=== PATIENT | male | born 1940 | race Caucasian/White ===

== ENCOUNTER → 2019-01-13 | Outpatient (CLI) | payer OTHER ==
[~2019-01-13] MED LIST: AMLO5 PO; ASPI325 PO; ATEN25 PO; ATEN50 PO; HYDCHL25 PO; LOSA50 PO; [UNRECOGNIZED DRUG - OTHER] PO
[2019-01-13 18:26] LABS: BASOPHILS ABSOLUTE AUTO 0.01 K/mm3 (0.00-0.23); BASOPHILS PERCENT AUTO 0 % (0-2); EOSINOPHILS ABSOLUTE AUTO 0.04 K/mm3 (0.00-0.68); EOSINOPHILS PERCENT AUTO 1 % (0-6); Hematocrit 42.9 % (37.0-53.0); Hemoglobin 14.5 g/dL (13.5-17.5); IMMATURE GRAN ABSOLUTE AUTO 0.02 K/mm3 (0.00-0.10); IMMATURE GRAN PERCENT AUTO 0 % (0-1); LYMPHOCYTES ABSOLUTE AUTO 0.86 K/mm3 (0.84-5.20); LYMPHOCYTES PERCENT AUTO 13 % (21-46); MONOCYTES ABSOLUTE AUTO 0.41 K/mm3 (0.16-1.47); MONOCYTES PERCENT AUTO 6 % (4-13); Mean Corpuscular HGB 32.4 pg (26.0-34.0); Mean Corpuscular HGB Conc 33.8 g/dL (31.5-36.5); Mean Corpuscular Volume 96 fL (80-100); Mean Platelet Volume 12.9 fL (9.1-12.4); NEUTROPHILS PERCENT AUTO 80 % (41-73); Platelet Count 155 K/mm3 (150-400); RDW Coefficient Variation 14.6 % (11.7-14.2); RDW Standard Deviation 51.4 fL (35.1-46.3); Red Blood Cell Count 4.48 M/mm3 (4.30-5.90); White Blood Cell Count 6.64 K/mm3 (4.00-11.30)
[2019-01-13 18:34] LABS: Bun/Creatinine Ratio 11.8 (12.0-20.0); Calcium, Blood 9.1 mg/dL (8.5-10.1); Creatinine, Blood 1.86 mg/dL (0.60-1.20); Potassium, Blood 4.1 mmol/L (3.5-5.5)
== END | disposition home or self-care (01) ==
LOC: LAB SHORT 18:19 → LAB EV 18:19
PROVIDERS: Physician Assistant Surgical
DX: R42 Dizziness and giddiness (principal)
CPT/HCPCS: 80048; 85025

== ENCOUNTER 2021-08-27 21:06 | Emergency (ER) | payer OTHER ==
[~2021-08-27] VITALS: Ht 170.2 cm; Wt 79.4 kg
[2021-08-27 22:03] LABS: BASOPHILS ABSOLUTE AUTO 0.01 K/mm3 (0.00-0.23); BASOPHILS PERCENT AUTO 0 % (0-2); EOSINOPHILS ABSOLUTE AUTO 0.11 K/mm3 (0.00-0.68); EOSINOPHILS PERCENT AUTO 3 % (0-6); Hematocrit 45.4 % (37.0-53.0); Hemoglobin 15.2 g/dL (13.5-17.5); IMMATURE GRAN ABSOLUTE AUTO 0.01 K/mm3 (0.00-0.10); IMMATURE GRAN PERCENT AUTO 0 % (0-1); LYMPHOCYTES ABSOLUTE AUTO 1.82 K/mm3 (0.84-5.20); LYMPHOCYTES PERCENT AUTO 41 % (21-46); MONOCYTES PERCENT AUTO 11 % (4-13); Mean Corpuscular HGB 32.1 pg (26.0-34.0); Mean Corpuscular HGB Conc 33.5 g/dL (31.5-36.5); Mean Corpuscular Volume 96 fL (80-100); Mean Platelet Volume 12.8 fL (9.1-12.4); NEUTROPHILS ABSOLUTE AUTO 2.03 K/mm3 (1.96-9.15); NEUTROPHILS PERCENT AUTO 45 % (41-73); Platelet Count 123 K/mm3 (150-400); RDW Coefficient Variation 13.4 % (11.7-14.2); RDW Standard Deviation 47.9 fL (35.1-46.3); Red Blood Cell Count 4.73 M/mm3 (4.30-5.90); White Blood Cell Count 4.48 K/mm3 (4.00-11.30)
[2021-08-27 22:19] LABS: Alanine Aminotransfer (ALT/SGP 30 U/L (12-78); Albumin, Blood 3.5 g/dL (3.4-5.0); Albumin/Globulin Ratio 0.9 (0.8-1.8); Alk Phos 65 U/L (50-136); Anion Gap 3 mmol/L (6-16); Aspartate Aminotrans (AST/SGOT 20 U/L (12-37); Bilirubin, Total 0.5 mg/dL (0.1-1.0); Blood Urea Nitrogen 18 mg/dL (8-24); Bun/Creatinine Ratio 17.1 (12.0-20.0); CO2, Blood 30 mmol/L (21-32); Calcium, Blood 8.8 mg/dL (8.5-10.1); Chloride, Blood 106 mmol/L (98-108); Creatinine, Blood 1.05 mg/dL (0.60-1.20); Globulin, Blood 3.8 g/dL (2.2-4.0); Glomerular Filtration Rate >60 (60-); Glucose, Blood 95 mg/dL (70-99); Potassium, Blood 4.5 mmol/L (3.5-5.5); Sodium, Blood 139 mmol/L (136-145); Total Protein, Blood 7.3 g/dL (6.4-8.2); Troponin I <0.015 ng/mL (0.000-0.040)
[2021-08-27] MEDS ORDERED: Pepcid40 MG PO (23:40)
== END 2021-08-28 00:16 | disposition home or self-care (01) ==
LOC: ER 21:06
PROVIDERS: Physician Assistant
DX: R07.89 Other chest pain (principal); I10 Essential (primary) hypertension; E78.00 Pure hypercholesterolemia, unspecified; Z88.8 Allergy status to other drugs, medicaments and biological substances; Z79.899 Other long term (current) drug therapy; Z86.73 Personal history of transient ischemic attack (TIA), and cerebral infarction without residual deficits
CPT/HCPCS: 36415; 71046; 80053; 83690; 83880; 84484; 85025; 93005; 93010; 96374; 99285-25; A9270

== ENCOUNTER 2021-08-30 15:55 | Inpatient (IN) | payer OTHER ==
[~2021-08-30] VITALS: Ht 170.2 cm; Wt 81.4 kg
[~2021-08-30 15:55] MED LIST changes: +Pepcid40 MG PO
[2021-08-30 16:32] LABS: BASOPHILS ABSOLUTE AUTO 0.01 K/mm3 (0.00-0.23); BASOPHILS PERCENT AUTO 0 % (0-2); EOSINOPHILS ABSOLUTE AUTO 0.07 K/mm3 (0.00-0.68); EOSINOPHILS PERCENT AUTO 1 % (0-6); Hematocrit 47.1 % (37.0-53.0); Hemoglobin 15.8 g/dL (13.5-17.5); IMMATURE GRAN ABSOLUTE AUTO 0.01 K/mm3 (0.00-0.10); IMMATURE GRAN PERCENT AUTO 0 % (0-1); LYMPHOCYTES ABSOLUTE AUTO 1.12 K/mm3 (0.84-5.20); LYMPHOCYTES PERCENT AUTO 20 % (21-46); MONOCYTES ABSOLUTE AUTO 0.28 K/mm3 (0.16-1.47); MONOCYTES PERCENT AUTO 5 % (4-13); Mean Corpuscular HGB Conc 33.5 g/dL (31.5-36.5); Mean Corpuscular Volume 95 fL (80-100); Mean Platelet Volume 12.5 fL (9.1-12.4); NEUTROPHILS ABSOLUTE AUTO 4.07 K/mm3 (1.96-9.15); NEUTROPHILS PERCENT AUTO 73 % (41-73); Platelet Count 122 K/mm3 (150-400); RDW Coefficient Variation 13.3 % (11.7-14.2); RDW Standard Deviation 46.7 fL (35.1-46.3); Red Blood Cell Count 4.94 M/mm3 (4.30-5.90); White Blood Cell Count 5.56 K/mm3 (4.00-11.30)
[2021-08-30 16:53] LABS: Albumin, Blood 3.8 g/dL (3.4-5.0); Bilirubin, Total 0.5 mg/dL (0.1-1.0); Bun/Creatinine Ratio 14.8 (12.0-20.0); Calcium, Blood 8.8 mg/dL (8.5-10.1); Creatinine, Blood 1.22 mg/dL (0.60-1.20); Globulin, Blood 3.7 g/dL (2.2-4.0); Potassium, Blood 3.7 mmol/L (3.5-5.5); Total Protein, Blood 7.5 g/dL (6.4-8.2); Troponin I 0.091 ng/mL (0.000-0.040)
[2021-08-30] MEDS ORDERED: TAMSULOSIN HCL0.4 M1 PO (18:47)
--- NOTE | 2021-08-30 23:59 | NUR ---
ERROR ON CHART REGARDING ALCOHOL WITHDRAWELS. THIS WAS WRITTEN IN THE WRONG CHART MISTAKENLY BY THIS RN. PATIENT HAS NO ALCOHOL SYMPTOMS NOR HAS HE AN ALCOHOL HISTORY. Suzanna JOHN RN.
--- NOTE | 2021-08-31 07:48 | NUR ---
PATIENT IS ALERT AND ORIENTED X4. HE IS COOPERATIVE WITH CARE, HOWEVER, HE IS VERY ANXIOUS ABOUT WHEN HE CAN GO HOME. EXPLAINED CT ANGIO AND POSSIBILITY OF REFRIGERATOR CAR ICER INTERVENTION IF NEEDED. MEDICATED ONCE WITH TYLENOL FOR FRONTAL HEADACHE WITH GOOD RESULT MEDICATED TWICE FOR SBP > 170
--- NOTE | 2021-08-31 13:02 | NUR ---
Echocardiogram completed.
--- NOTE | 2021-08-31 18:00 | NUR ---
SHIFT SUMMARY; PATIENT HAD FIRST PART OF NADINE SCAN TODAY. SECOND PART IN AM ON WEDNESDAY. PATIENT IS INDEPENDANT IN ROOM. DENIES ANY CHEST PAIN OR DISCOMFORT. WILL REMAIN AVAILABLE FOR THIS PATIENT UNTIL SHIFT CHANGE AND HAND OFF TO ONCOMING RN. STACIE NAGEL RN
[2021-09-01 04:53] LABS: BASOPHILS ABSOLUTE AUTO 0.01 K/mm3 (0.00-0.23); BASOPHILS PERCENT AUTO 0 % (0-2); EOSINOPHILS ABSOLUTE AUTO 0.16 K/mm3 (0.00-0.68); EOSINOPHILS PERCENT AUTO 3 % (0-6); Hematocrit 41.3 % (37.0-53.0); IMMATURE GRAN ABSOLUTE AUTO 0.02 K/mm3 (0.00-0.10); IMMATURE GRAN PERCENT AUTO 0 % (0-1); LYMPHOCYTES ABSOLUTE AUTO 1.49 K/mm3 (0.84-5.20); LYMPHOCYTES PERCENT AUTO 29 % (21-46); MONOCYTES ABSOLUTE AUTO 0.37 K/mm3 (0.16-1.47); MONOCYTES PERCENT AUTO 7 % (4-13); Mean Corpuscular HGB 32.2 pg (26.0-34.0); Mean Corpuscular HGB Conc 33.9 g/dL (31.5-36.5); Mean Corpuscular Volume 95 fL (80-100); Mean Platelet Volume 12.5 fL (9.1-12.4); NEUTROPHILS ABSOLUTE AUTO 3.04 K/mm3 (1.96-9.15); NEUTROPHILS PERCENT AUTO 60 % (41-73); Platelet Count 112 K/mm3 (150-400); RDW Coefficient Variation 13.5 % (11.7-14.2); RDW Standard Deviation 47.4 fL (35.1-46.3); Red Blood Cell Count 4.35 M/mm3 (4.30-5.90); White Blood Cell Count 5.09 K/mm3 (4.00-11.30)
--- NOTE | 2021-09-01 05:18 | NUR ---
SHIFT SUMMARY A/OX4, PLEASANT AND COOPERATIVE WITH CARE. DENIES CP AND SOB AT THIS TIME. TELE SB IN THE 50S. NPO SINCE MIDNIGHT FOR 2ND STRESS TEST TODAY. VSS, NO ACUTE CHANGES AT THIS TIME. BED IN LOWEST POSITION WITH CALL LIGHT IN REACH. WILL CONTINUE TO MONITOR AND REPORT TO ONCOMING RN.
[2021-09-01 05:37] LABS: Alanine Aminotransfer (ALT/SGP 26 U/L (12-78); Alk Phos 51 U/L (50-136); Anion Gap 8 mmol/L (6-16); Aspartate Aminotrans (AST/SGOT 13 U/L (12-37); Bilirubin, Total 0.6 mg/dL (0.1-1.0); Blood Urea Nitrogen 20 mg/dL (8-24); Bun/Creatinine Ratio 20.4 (12.0-20.0); CO2, Blood 25 mmol/L (21-32); Calcium, Blood 8.9 mg/dL (8.5-10.1); Chloride, Blood 106 mmol/L (98-108); Creatinine, Blood 0.98 mg/dL (0.60-1.20); Globulin, Blood 2.9 g/dL (2.2-4.0); Glomerular Filtration Rate >60 (60-); Glucose, Blood 101 mg/dL (70-99); Magnesium, Blood 1.9 mg/dL (1.6-2.4); Sodium, Blood 139 mmol/L (136-145); Total Protein, Blood 5.9 g/dL (6.4-8.2)
--- NOTE | 2021-09-01 18:15 | NUR ---
PT A/O X4, INDEPENDENT IN ROOM, NO C/O OF CHEST PAIN THIS SHIFT, PART 2 OF STRESS CONCLUDED THIS AFTERNOON. WAITING FOR IT TO BE READ. PT WOULD LIKE TO BE DISCHARGED HOME IF POSSIBLE. NO ACUTE CHANGES NOTED THIS SHIFT, WILL CONTINUE TO MONITOR AND REPORT TO ONCOMING RN.
--- NOTE | 2021-09-01 23:44 | NUR ---
Pt is independant and showered and dressed w/ no assistance. He is pleasant and friendly. Pt expressed that he did not want to take his 2100 Lozartan as he didnt think it was the same dosage as the one he takes at home. Pt then changed his mind and asked to take the med. Pt denies any chest pain or sob and states that he is comfortable.
--- NOTE | 2021-09-02 06:11 | NUR ---
Pt care was uneventful and unremarkable. Pt is kind and friendly and is independant and pro active in his own care. Pt had cardiac stress test yesterday and is waiting for a cardiac consult. He is hoping to go home today. He slept most of the night but stated he was woke up at 0430 to have his vital signs taken. Pt denies chest pain or sob and states that he is not in pain anywhere else. Vitals are wnl.
[2021-09-02 15:51] LABS: Anti-Xa UFH, PHA Monitoring <0.10 IU/mL; International Normalized Ratio 1.01; Prothrombin Time Results 10.6 Sec (9.7-11.5)
--- NOTE | 2021-09-03 01:20 | NUR ---
HEPARIN: Heparin Anti Xa @ 2318 was 0.74. Per pharmacy heparin gtt is decreased to 14 u/kg/hr. Next lab draw is at 0600.
--- NOTE | 2021-09-03 06:10 | NUR ---
SHIFT SUMMARY: VSS, NO REPORTS OF PAIN OR DISCOMFORT. HEPARIN GTT IS INFUSING AT 14 U/KG/HR. AWAITING RESULTS OF THE 0600 HEPARIN Aniti-Xa DRAW. PATIENT HAS BEEN NPO SINCE [place]. IFV ARE INFUSING PER MD ORDER.
[2021-09-03 07:05] LABS: Anion Gap 8 mmol/L (6-16); Blood Urea Nitrogen 21 mg/dL (8-24); Bun/Creatinine Ratio 23.1 (12.0-20.0); CO2, Blood 25 mmol/L (21-32); Calcium, Blood 8.6 mg/dL (8.5-10.1); Chloride, Blood 108 mmol/L (98-108); Creatinine, Blood 0.91 mg/dL (0.60-1.20); Glomerular Filtration Rate >60 (60-); Glucose, Blood 99 mg/dL (70-99); Potassium, Blood 4.1 mmol/L (3.5-5.5); Sodium, Blood 141 mmol/L (136-145); Troponin I 0.238 ng/mL (0.000-0.040)
[2021-09-03 09:22] LABS: Influenza A, PCR NEGATIVE (NEGATIVE); Influenza B, PCR NEGATIVE (NEGATIVE); Resp Syncytial Virus, PCR NEGATIVE (NEGATIVE); SARS-Cov-2 (COVID-19) PCR, MMC NEGATIVE (NEGATIVE)
--- NOTE | 2021-09-03 09:28 | NUR ---
PT TAKEN FOR PROCEDURE, BELONGINGS BROUGHT TO ICU 5
--- NOTE | 2021-09-03 10:30 | NUR ---
REPORT GIVEN TO AUGUSTINE ANGUIANO
--- NOTE | 2021-09-03 11:23 | NUR ---
PT TO ICU 5 FROM THERAPIST PHYS AT 1055. PT IS A/O X4. DENIES PAIN OR SOB. ON RA. PT HAS R RADIAL TR BAND IN PLACE WITH ARM BOARD. NO SIGNS OF BLEEDING FROM THIS SITE. ALSO HAS FEMSTOP TO R GROIN. DR. BROWN WANTS FEMSTOP DECREASED BY 20 EVERY HOURS. R GROIN DRESSING HAS A SM AMT OF BLOOD THE SIZE OF A QUARTER ON DRESSING THAT IS NOT GROWING IN SIZE UNDER THE FEMSTOP. PT IS ABLE TO USE CALL LIGHT. NO SIGN OF DISTRESS. DR. BROWN IS CONTACTING [facility] TO SEE IF HE CAN BE TRANSFERED FOR CABG.
[2021-09-03 15:03] LABS: Hematocrit 40.7 % (37.0-53.0); Mean Platelet Volume 12.3 fL (9.1-12.4); Platelet Count 110 K/mm3 (150-400)
--- NOTE | 2021-09-03 15:44 | NUR ---
PT IS RESTING IN BED. R RADIAL TR BAND HAS BEEN DEFLATED WITHOUT ISSUE. R FEMORAL ACCESS SITE IS STABLE, CLEAR OCCLUSIVE DRESSING PLACED. STARTING TO SLOWLY RAISE HOB. NO SIGN OF DISTRESS.
--- NOTE | 2021-09-03 19:45 | NUR ---
patient ambulated around ICU/guerra with RN HR highest at 82 No desaturations with pulse ox, patient on RA
--- NOTE | 2021-09-03 21:33 | NUR ---
JESSICA PIV not inserted by check writer, in place upon assessment, charting insertion so PIV will appear as an open line of availability
--- NOTE | 2021-09-04 01:45 | NUR ---
anti xa result at 0.66 per pharmacy note, continue heparin gtt at 14 next draw at 0700
--- NOTE | 2021-09-04 04:47 | NUR ---
Patient ambulates back from toilet to bed Patient states bowel movement, but not visualized by RN
--- NOTE | 2021-09-04 06:34 | NUR ---
End of shift summary: Patient ambulated x2 overnight without complications. Patient required 2LNC HS for desaturion down to 86% when sleeping. Patient currently on RA while awake. R radial and R groin site without pain, pulses strong distally. Occlusive dressings remain on. No active bleeding. No hematoma. Mild firmness to R groin present. Heparin gtt continues at 14u per pharmacy. Next anti-xa at 0700. VSS. HR SB in 50s. NBP stable. No fevers. GI/ assessment negative.
--- NOTE | 2021-09-04 12:41 | NUR ---
PT INDEP IN ROOM BOTH R RADIAL ACCESS SITE AND R FEMORAL ACCESS SITE HAVE BEEN STABLE. WAITING ON A BED TO BECOME AVAILABLE AT [facility] FOR TRANSFER. PT IS ABLE TO USE CALL LIGHT AND HAS KEPT HIS FAMILY INFORMED VIA CELL PHONE. NO SIGN OF DISTRESS.
--- NOTE | 2021-09-04 16:39 | NUR ---
TRANSFER OUT PT TO BE TRANSFERED TO [facility] IN [place]. PT HAS SIGNED CONSENT PAPERWORK AND IS AGREEABLE TO TRANSFER. PT TO GO VIA [facility]. HEPARIN GTT INFUSING AT 14 UNITS/KG/HR. VITAL SIGNS STABLE. PT ON ROOM AIR. ALL PT BELONGINGS TO BE SENT WITH PT. REPORT CALLED TO SILVIO ANDERS AT 1630. AWAITING TRANSPORT AT THIS TIME.
== END 2021-09-04 17:01 | disposition short-term general hospital (02) | DRG 281 ==
LOC: ER 15:55 → MEDS 15:56 → ICUE 09-02 15:03 → MEDS 09-02 15:03 → ICUE 09-03 09:37
PROVIDERS: Emergency Medicine; Hospitalist; Internal Medicine; Internal Medicine Cardiovascular Disease; ADMIT Internal Medicine
PROC: 4A023N7 Measurement of Cardiac Sampling and Pressure, Left Heart, Percutaneous Approach (ICD-10-PCS; principal; 2021-09-03)
PROC: B2111ZZ Fluoroscopy of Multiple Coronary Arteries using Low Osmolar Contrast (ICD-10-PCS; 2021-09-03)
DX: I21.4 Non-ST elevation (NSTEMI) myocardial infarction (principal); N17.9 Acute kidney failure, unspecified; Z20.822 Contact with and (suspected) exposure to COVID-19; I25.10 Atherosclerotic heart disease of native coronary artery without angina pectoris; N40.0 Benign prostatic hyperplasia without lower urinary tract symptoms; I12.9 Hypertensive chronic kidney disease with stage 1 through stage 4 chronic kidney disease, or unspecified chronic kidney disease; I70.0 Atherosclerosis of aorta; N18.30 Chronic kidney disease, stage 3 unspecified; E78.5 Hyperlipidemia, unspecified; D69.6 Thrombocytopenia, unspecified; Z88.8 Allergy status to other drugs, medicaments and biological substances; Z79.899 Other long term (current) drug therapy; Z98.890 Other specified postprocedural states; Z28.21 Immunization not carried out because of patient refusal; Z87.891 Personal history of nicotine dependence; Z86.73 Personal history of transient ischemic attack (TIA), and cerebral infarction without residual deficits
CPT/HCPCS: 0241U; 36415; 76937; 78452; 80048; 80053; 83735; 84484; 85014; 85018; 85025; 85049; 85347; 85520; 85610; 93005; 93010; 93017; 93306; 93455; 94760; 96374; 96376; 99152; 99153; 99285-25; A9270; A9500; C1760; C1769; C1887; C1894; G0378; J0280; J0360; J1644; J2250; J2785; J3010; J7030; J7040; J7050; Q9967